=== PATIENT | female | born 1950 | race African-American/Black ===

== ENCOUNTER 2021-04-19 22:43 | Inpatient (IN) | payer OTHER, MEDICARE, MEDICAID ==
[2021-04-20] MEDS ORDERED: Ondansetron PF 4 MG/2 ML Vial IVP PRN (02:06)
[2021-04-20] MEDS ORDERED: Acetaminophen 325 MG TAB PO PRN (02:06)
[2021-04-20 02:11] VITALS: BMI 38.0
[2021-04-20] MEDS ORDERED: Morphine 4 MG/ML VIAL SLOW IVP PRN (02:13)
[2021-04-20] MEDS ORDERED: Potassium Chloride 10 MEQ TAB PO SCH (02:30)
[2021-04-20] MEDS: HYDROcodone/Acetaminophen 5/325 mg Tablet PO PRN (02:44)
[2021-04-20 05:08] LABS: #Lymphocytes 1.4 thou/uL (1.20-3.40); #Monocytes 0.1 thou/uL (0.11-0.59); #Neutrophils 2.5 thou/uL (1.40-6.50); %Basophils 1.1 % (0.0-1.0); %Eosinophils 1.1 % (0.0-10.0); %Lymphocytes 33.3 % (21.0-51.0); %Monocytes 3.2 % (0.0-10.0); %Neutrophils 61.4 % (42.0-75.0); Hemoglobin 10.9 g/dL (12.0-16.0); Mean Corpuscular HGB CONC 34.3 g/dL (32.0-36.0); Mean Corpuscular Hemoglobin 29.8 pg (27.0-31.0); Mean Corpuscular Volume 86.9 fL (78.0-98.0); Mean Platelet Volume 11.9 fL (7.4-10.4); Platelet Count 46 thou/uL (130-400); RBC Distribution Width 20.2 % (11.5-14.5); Red Blood Cell (RBC) Count 3.67 mill/uL (4.20-5.40); White Blood Cell (WBC) Count 4.2 thou/uL (4.8-10.8)
[2021-04-20 05:20] LABS: Anion Gap 14 mmol/L (10-20); BUN (Urea Nitrogen) 17 mg/dL (9.8-20.1); Calc. Creatinine Clearance 130 mL/min (70-130); Calcium 9.1 mg/dL (7.8-10.44); Carbon Dioxide 20 mmol/L (23-31); Chloride 105 mmol/L (98-107); Glucose 93 mg/dL (80-115); Magnesium 1.1 mg/dL (1.6-2.6); Sodium 136 mmol/L (136-145)
[2021-04-20 05:24] LABS: Potassium 2.9 mmol/L (3.5-5.1)
[2021-04-20] MEDS ORDERED: Magnesium Sulfate 4 GM in Sodium Chloride 0.9% 250 ML 250 ML IVPB SCH (06:00)
[2021-04-20] MEDS: Potassium Chloride 20 MEQ in Premix Bag 1 BAG IVPB SCH ×2 (06:43→08:52)
[2021-04-20] MEDS ORDERED: Electrolyte Replacement Protocol 1 EACH FS SCH (07:00)
[2021-04-20] MEDS: Loratadine 10 MG TAB PO SCH (08:52)
[2021-04-20] MEDS: Senokot S 8.6-50 MG TAB PO SCH ×2 (08:52→20:47)
[2021-04-20 10:30] LABS: Potassium 3.7 mmol/L (3.5-5.1)
[2021-04-20] MEDS: Enoxaparin Sodium 100 MG/ML SYRINGE SC SCH ×2 (12:09→20:47)
[2021-04-20] MEDS ORDERED: Melatonin 3 MG TAB PO SCH (21:07)
[2021-04-21 05:24] LABS: Anion Gap 11 mmol/L (10-20); Anisocytosis SLIGHT = 6-15 cells (100X) (0-5/hpf); Band 3 % (5-11); Calcium 9.2 mg/dL (7.8-10.44); Carbon Dioxide 23 mmol/L (23-31); Chloride 105 mmol/L (98-107); Eosinophils 1 % (0-10); Hemoglobin 10.1 g/dL (12.0-16.0); Lymphocytes 42 % (21-51); MDiff Complete? YES; Mean Corpuscular HGB CONC 32.6 g/dL (32.0-36.0); Mean Corpuscular Hemoglobin 28.7 pg (27.0-31.0); Mean Corpuscular Volume 88.2 fL (78.0-98.0); Mean Platelet Volume 13.7 fL (7.4-10.4); Monocytes 6 % (0-10); Neutrophil 47 % (42-75); Platelet Count 33 thou/uL (130-400); Platelet Morphology Comment Appears Decreased; Potassium 3.8 mmol/L (3.5-5.1); Reactive Lymphocytes 1 % (0-10); Red Blood Cell (RBC) Count 3.52 mill/uL (4.20-5.40); Sodium 135 mmol/L (136-145); White Blood Cell (WBC) Count 2.6 thou/uL (4.8-10.8)
[2021-04-21 05:34] LABS: BUN (Urea Nitrogen) 12 mg/dL (9.8-20.1); Calc. Creatinine Clearance 142 mL/min (70-130); Glucose 100 mg/dL (80-115); Magnesium 1.4 mg/dL (1.6-2.6)
[2021-04-21] MEDS ORDERED: Magnesium 2 GM/50 ML 2 GM in Premix Bag 1 BAG IVPB SCH (05:45)
[2021-04-21] MEDS: Magnesium 2 GM/50 ML 2 GM in Premix Bag 1 BAG IVPB SCH ×2 (05:58→07:04)
[2021-04-21] MEDS: HYDROcodone/Acetaminophen 5/325 mg Tablet PO PRN (06:31)
[2021-04-21] MEDS ORDERED: Amlodipine 5 MG TAB PO SCH ×2 (09:00→18:45)
[2021-04-21] MEDS ORDERED: FLU VACC QS2021-22(65YR UP)/PF 240 MCG/0.7 ML SYRINGE IM ONE (09:00)
[2021-04-21] MEDS: Loratadine 10 MG TAB PO SCH (09:49)
[2021-04-21] MEDS: Senokot S 8.6-50 MG TAB PO SCH ×2 (09:51→20:05)
[2021-04-21] MEDS: Polyethylene Glycol 3350 17 GM Packet PO SCH (09:51)
[2021-04-22] MEDS: hydrALAZINE 20 MG/ML VIAL SLOW IVP PRN ×2 (00:03→04:46)
[2021-04-22] MEDS: HYDROcodone/Acetaminophen 5/325 mg Tablet PO PRN ×2 (00:42→09:26)
[2021-04-22 05:29] LABS: Anion Gap 15 mmol/L (10-20); BUN (Urea Nitrogen) 13 mg/dL (9.8-20.1); Calc. Creatinine Clearance 131 mL/min (70-130); Calcium 9.3 mg/dL (7.8-10.44); Carbon Dioxide 19 mmol/L (23-31); Chloride 104 mmol/L (98-107); Glucose 98 mg/dL (80-115); Magnesium 1.7 mg/dL (1.6-2.6); Potassium 4.1 mmol/L (3.5-5.1); Sodium 134 mmol/L (136-145)
[2021-04-22 05:58] LABS: Band 17 % (5-11); Hemoglobin 10.3 g/dL (12.0-16.0); Lymphocytes 38 % (21-51); MDiff Complete? YES; Mean Corpuscular HGB CONC 34.7 g/dL (32.0-36.0); Mean Corpuscular Hemoglobin 30.5 pg (27.0-31.0); Mean Platelet Volume 10.6 fL (7.4-10.4); Monocytes 12 % (0-10); Neutrophil 32 % (42-75); Platelet Count 28 thou/uL (130-400); Platelet Morphology Comment Appears Decreased; RBC Distribution Width 19.8 % (11.5-14.5); Red Blood Cell (RBC) Count 3.36 mill/uL (4.20-5.40); White Blood Cell (WBC) Count 3.9 thou/uL (4.8-10.8)
[2021-04-22] MEDS ORDERED: Magnesium 2 GM/50 ML 2 GM in Premix Bag 1 BAG IVPB SCH (06:00)
[2021-04-22] MEDS ORDERED: Ondansetron ODT 4 MG TAB PO PRN (06:51)
[2021-04-22] MEDS ORDERED: Calcium Carbonate 500 MG ChewTAB PO PRN (06:51)
[2021-04-22] MEDS ORDERED: Sodium Chloride 0.65% Nasal 44 ML BOT EA NARE PRN (06:51)
[2021-04-22] MEDS ORDERED: Loperamide HCl 2 MG CAP PO PRN (06:51)
[2021-04-22] MEDS ORDERED: Benzonatate 100 MG CAP PO PRN (06:51)
[2021-04-22] MEDS ORDERED: Hydrocerin (Eucerin) Cream 120 gm Jar TOP PRN (06:51)
[2021-04-22] MEDS ORDERED: Artificial Tear Sol 15 ML BOT EA EYE PRN (06:51)
[2021-04-22] MEDS ORDERED: GUAIFENESIN SF SOLN 200 MG/10 ML UDCUP PO PRN (06:51)
[2021-04-22] MEDS ORDERED: Cepastat Lozenges 1 LOZ PO PRN (06:51)
[2021-04-22] MEDS ORDERED: Zolpidem Tartrate 5 MG TAB PO PRN (06:51)
[2021-04-22] MEDS: Amlodipine 5 MG TAB PO SCH (08:26)
[2021-04-22] MEDS: Loratadine 10 MG TAB PO SCH (08:26)
[2021-04-22] MEDS: Polyethylene Glycol 3350 17 GM Packet PO SCH (08:26)
[2021-04-22] MEDS: Senokot S 8.6-50 MG TAB PO SCH ×2 (08:26→20:36)
[2021-04-23 06:25] LABS: #Eosinphils 0.1 thou/uL (0.0-0.7); #Lymphocytes 1.4 thou/uL (1.20-3.40); #Monocytes 0.6 thou/uL (0.11-0.59); #Neutrophils 3.1 thou/uL (1.40-6.50); %Basophils 0.3 % (0.0-1.0); %Eosinophils 1.3 % (0.0-10.0); %Lymphocytes 26.5 % (21.0-51.0); %Neutrophils 59.8 % (42.0-75.0); Hemoglobin 10.1 g/dL (12.0-16.0); Mean Corpuscular HGB CONC 33.4 g/dL (32.0-36.0); Mean Corpuscular Hemoglobin 29.2 pg (27.0-31.0); Mean Corpuscular Volume 87.6 fL (78.0-98.0); Mean Platelet Volume 11.9 fL (7.4-10.4); Platelet Count 48 thou/uL (130-400); Red Blood Cell (RBC) Count 3.44 mill/uL (4.20-5.40); White Blood Cell (WBC) Count 5.2 thou/uL (4.8-10.8)
[2021-04-23 06:39] LABS: ALT (SGPT) 23 U/L (8-55); AST (SGOT) 31 U/L (5-34); Albumin 3.9 g/dL (3.4-4.8); Alkaline Phosphatase 96 U/L (40-110); Anion Gap 13 mmol/L (10-20); BUN (Urea Nitrogen) 18 mg/dL (9.8-20.1); Bilirubin, Total 0.3 mg/dL (0.2-1.2); Calc. Creatinine Clearance 114 mL/min (70-130); Calcium 9.2 mg/dL (7.8-10.44); Carbon Dioxide 22 mmol/L (23-31); Chloride 103 mmol/L (98-107); Globulin 3.1 g/dL (2.4-3.5); Glucose 103 mg/dL (80-115); Potassium 3.5 mmol/L (3.5-5.1); Sodium 134 mmol/L (136-145)
[2021-04-23 08:11] VITALS: BP 161/74; TEMP 98.3
[2021-04-23] MEDS: Loratadine 10 MG TAB PO SCH (08:31)
[2021-04-23] MEDS: Amlodipine 5 MG TAB PO SCH (08:31)
[2021-04-23] MEDS: Senokot S 8.6-50 MG TAB PO SCH (08:32)
[2021-04-23] MEDS: Polyethylene Glycol 3350 17 GM Packet PO SCH (08:32)
[2021-04-23] MEDS ORDERED: Apixaban 5 MG TAB PO SCH (09:00)
== END 2021-04-23 11:06 | disposition home or self-care (01) | DRG 175 ==
LOC: 2SE 22:43 → 2SW 04-21 17:24 → OBSVTOIN 04-21 18:15
PROVIDERS: ADMIT Internal Medicine; ATTEND Internal Medicine
DX: I26.99 Other pulmonary embolism without acute cor pulmonale (principal); D61.810 Antineoplastic chemotherapy induced pancytopenia; C56.9 Malignant neoplasm of unspecified ovary; I10 Essential (primary) hypertension; S42.032A Displaced fracture of lateral end of left clavicle, initial encounter for closed fracture; W01.0XXA Fall on same level from slipping, tripping and stumbling without subsequent striking against object, initial encounter; Z20.822 Contact with and (suspected) exposure to COVID-19; E87.6 Hypokalemia; E83.42 Hypomagnesemia; F17.210 Nicotine dependence, cigarettes, uncomplicated; E78.5 Hyperlipidemia, unspecified; I27.82 Chronic pulmonary embolism; K59.00 Constipation, unspecified; T45.1X5A Adverse effect of antineoplastic and immunosuppressive drugs, initial encounter; Z28.21 Immunization not carried out because of patient refusal; Z79.01 Long term (current) use of anticoagulants; Y92.002 Bathroom of unspecified non-institutional (private) residence as the place of occurrence of the external cause; Z90.710 Acquired absence of both cervix and uterus; Z82.49 Family history of ischemic heart disease and other diseases of the circulatory system; Z90.49 Acquired absence of other specified parts of digestive tract; Z90.722 Acquired absence of ovaries, bilateral; Z80.1 Family history of malignant neoplasm of trachea, bronchus and lung
CPT/HCPCS: 36415; 70450; 80048; 80053; 83735; 85025; 93970; 96372; 96374; 96375; 96376; G0378; J0360; J1650; J3475; J3480; J7050

== ENCOUNTER 2023-06-19 10:43 | Emergency (ER) | payer OTHER ==
[2023-06-19] MEDS ORDERED: Ketorolac Tromethamine 30 MG (1 mL) VIAL ONE (11:10)
== END 2023-06-19 12:20 | disposition home or self-care (01) ==
LOC: ERS 10:43
DX: M25.561 Pain in right knee (principal); M25.562 Pain in left knee; G89.29 Other chronic pain; I10 Essential (primary) hypertension; F17.210 Nicotine dependence, cigarettes, uncomplicated
CPT/HCPCS: 96372; J1885